=== PATIENT | female | born 1955 | race Caucasian/White ===

== ENCOUNTER 2020-12-24 15:22 | Inpatient (IN) ==
[2020-12-24] MEDS ORDERED: *HR* LORazepam 2 MG/ML VIAL IVP ONE ×3 (16:00→17:40)
[2020-12-24] MEDS ORDERED: 0.9 % Sodium Chloride 1,000 ML IV ONE (16:04)
[2020-12-24] MEDS ORDERED: 0.9 % Sodium Chloride 1,000 ML IVC ONE (16:14)
[2020-12-24] MEDS ORDERED: Naloxone 0.4 MG/ML INJ IVP PRN (17:51)
[2020-12-24] MEDS ORDERED: *HR* LORazepam 2 MG/ML VIAL IVP PRN ×2 (18:05)
[2020-12-24] MEDS: Thiamine (B-1) 100 MG, Folic Acid 1 MG, MVI, adult with vitamin K 10 ML in 0.9 % Sodi... IVPB SCH (18:23)
[2020-12-24] MEDS: 0.9 % Sodium Chloride 1,000 ML IVC SCH (18:26)
[2020-12-24] MEDS ORDERED: cefTRIAXone 1,000 MG in Water for inj. (sterile) 10 ML IVP SCH (19:00)
[2020-12-24 19:51] LABS: Hemoglobin 10.3 g/dL (11.5-15.4)
[2020-12-24] MEDS: Nystatin SUSP 5 ML UD.LIQ PO SCH ×2 (21:32→21:34)
[2020-12-25] MEDS: 0.9 % Sodium Chloride 1,000 ML IVC SCH ×3 (01:49→18:28)
[2020-12-25 05:11] LABS: Basophils % 0.6 %; Hemoglobin 9.1 g/dL (11.5-15.4); Red Cell Distribution Width 13.9 % (11.5-14.5)
[2020-12-25 05:12] LABS: Eosinophils % 0.9 %; Hematocrit 26.5 % (35.3-44.9); Immature Granulocytes % 0.6 % (0-4); Immature Platelets 4.9 % (1.1-6.1); Lymphocytes % 28.6 %; Mean Corpuscular HGB Conc 34.3 g/dL (31.6-35.5); Mean Corpuscular Hemoglobin 32.9 pg (28.0-33.3); Mean Corpuscular Volume 95.7 fL (83.0-100.0); Monocytes # 0.2 K/mcL (0.0-1.3); Monocytes % 5.1 %; Neutrophils # 2.3 K/mcL (1.6-8.9); Red Blood Count 2.77 M/mcL (3.82-4.97); Segmented Neutrophils % 64.2 %; White Blood Count 3.5 K/mcL (4.3-11.1)
[2020-12-25 05:17] LABS: INR 1.1; Prothrombin Time 13.1 Seconds (9.4-12.1)
[2020-12-25 05:19] LABS: Platelet Count 79 K/mcL (140-400)
[2020-12-25 05:31] LABS: Albumin 2.9 g/dL (3.5-5.7); Albumin/Globulin Ratio 2.1 (1.1-2.2); BUN/Creatinine Ratio 22 (6-26); Bilirubin,Direct 1.1 mg/dL (0.0-0.2); Bilirubin,Indirect 0.8 mg/dL (0.0-1.0); Bilirubin,Total 1.9 mg/dL (0.3-1.0); Blood Urea Nitrogen 11 mg/dL (8-23); Calcium 7.9 mg/dL (8.6-10.3); Carbon Dioxide 26 mEq/L (23-29); Chloride 106 mEq/L (98-107); Globulin 1.4 g/dL (2.4-3.5); Glucose 129 mg/dL (70-105); Magnesium 1.5 mg/dL (1.6-2.6); Osmolality,Calculated 287 (280-300); Phosphorous 1.5 mg/dL (2.7-4.5); Sodium 138 mEq/L (136-145); Total Protein 4.3 g/dL (6.4-8.9); eGFR For African Americans > 60 (> 60); eGFR For Non-African Americans > 60 (> 60)
[2020-12-25] MEDS: Pantoprazole 40 MG VIAL IVP SCH ×2 (06:21→16:40)
[2020-12-25] MEDS: Nystatin SUSP 5 ML UD.LIQ PO SCH ×4 (07:23→22:33)
[2020-12-25 13:22] LABS: Thyroid Stimulating Hormone 18.668 mcIU/mL (0.340-5.600)
[2020-12-25 13:28] LABS: Triiodothyronine (T3) Total 0.82 ng/mL (0.87-1.78)
[2020-12-25 14:39] LABS: Adenovirus F 40/41 PCR Not detected (Not detect); Astrovirus PCR Not detected (Not detect); C.difficile Toxin A/B Gene PCR Not detected (Not detect); Campylobacter by PCR Not detected (Not detect); Cryptosporidium by PCR Not detected (Not detect); Cyclospora cayetanensis PCR Not detected (Not detect); E. coli O157 by PCR Not detected (Not detect); Entamoeba histolytica PCR Not detected (Not detect); Enteroaggregative E.coli(EAEC) Not detected (Not detect); Enteropathogenic E.coli(EPEC) Not detected (Not detect); Enterotoxigenic E.coli (ETEC) Not detected (Not detect); Giardia lamblia PCR Not detected (Not detect); Norovirus GI/GII PCR Not detected (Not detect); Plesiomonas shigelloides PCR Not detected (Not detect); Rotavirus A PCR Not detected (Not detect); Salmonella PCR Not detected (Not detect); Sapovirus PCR Not detected (Not detect); Shig/EnteroinvasiveE coli EIEC Not detected (Not detect); Shigalike tox-prod E coli STEC Not detected (Not detect); Vibrio PCR Not detected (Not detect); Vibrio cholerae PCR Not detected (Not detect); Yersinia enterocolitica PCR Not detected (Not detect)
[2020-12-25] MEDS: Thiamine (B-1) 100 MG, Folic Acid 1 MG, MVI, adult with vitamin K 10 ML in 0.9 % Sodi... IVPB SCH (16:40)
[2020-12-25] MEDS: *HR* LORazepam 2 MG/ML VIAL IVP PRN (16:40)
[2020-12-26] MEDS: 0.9 % Sodium Chloride 1,000 ML IVC SCH ×4 (02:47→17:30)
[2020-12-26 03:49] LABS: Basophils % 0.5 %; Eosinophils % 0.7 %; Hematocrit 28.6 % (35.3-44.9); Hemoglobin 9.6 g/dL (11.5-15.4); Immature Platelets 7.2 % (1.1-6.1); Lymphocytes # 1.2 K/mcL (0.6-4.6); Lymphocytes % 28.9 %; Mean Corpuscular HGB Conc 33.6 g/dL (31.6-35.5); Mean Corpuscular Hemoglobin 32.9 pg (28.0-33.3); Mean Corpuscular Volume 97.9 fL (83.0-100.0); Mean Platelet Volume 10.7 fL (9.4-12.4); Monocytes # 0.2 K/mcL (0.0-1.3); Monocytes % 5.9 %; Neutrophils # 2.6 K/mcL (1.6-8.9); Red Blood Count 2.92 M/mcL (3.82-4.97); Red Cell Distribution Width 14.5 % (11.5-14.5); White Blood Count 4.1 K/mcL (4.3-11.1)
[2020-12-26 03:53] LABS: Platelet Count 84 K/mcL (140-400)
[2020-12-26 04:00] LABS: Alanine Aminotransferase 212 Units/L (7-52); Albumin 3.1 g/dL (3.5-5.7); Albumin/Globulin Ratio 2.1 (1.1-2.2); Alkaline Phosphatase 124 Units/L (34-104); Aspartate Amino Transferase 437 Units/L (13-39); BUN/Creatinine Ratio 8 (6-26); Bilirubin,Total 1.1 mg/dL (0.3-1.0); Blood Urea Nitrogen 4 mg/dL (8-23); Calcium 8.2 mg/dL (8.6-10.3); Carbon Dioxide 30 mEq/L (23-29); Chloride 104 mEq/L (98-107); Globulin 1.5 g/dL (2.4-3.5); Glucose 100 mg/dL (70-105); Magnesium 1.8 mg/dL (1.6-2.6); Osmolality,Calculated 287 (280-300); Phosphorous 1.4 mg/dL (2.7-4.5); Potassium 3.3 mEq/L (3.5-5.1); Sodium 140 mEq/L (136-145); Total Protein 4.6 g/dL (6.4-8.9); eGFR For African Americans > 60 (> 60); eGFR For Non-African Americans > 60 (> 60)
[2020-12-26] MEDS: Pantoprazole 40 MG VIAL IVP SCH ×2 (06:35→16:48)
[2020-12-26] MEDS: Nystatin SUSP 5 ML UD.LIQ PO SCH ×4 (08:26→21:53)
[2020-12-26] MEDS: Levothyroxine 25 MCG TABLET PO SCH (09:27)
[2020-12-26] MEDS: *HR* LORazepam 2 MG/ML VIAL IVP PRN ×2 (15:40→22:28)
[2020-12-26] MEDS: Thiamine (B-1) 100 MG, Folic Acid 1 MG, MVI, adult with vitamin K 10 ML in 0.9 % Sodi... IVPB SCH (16:48)
[2020-12-27 04:49] LABS: Basophils % 0.6 %; Eosinophils % 0.8 %; Hematocrit 28.9 % (35.3-44.9); Hemoglobin 9.6 g/dL (11.5-15.4); Immature Granulocytes % 0.6 % (0-4); Immature Platelets 5.7 % (1.1-6.1); Lymphocytes # 1.4 K/mcL (0.6-4.6); Lymphocytes % 29.9 %; Mean Corpuscular HGB Conc 33.2 g/dL (31.6-35.5); Mean Corpuscular Volume 99.3 fL (83.0-100.0); Mean Platelet Volume 10.4 fL (9.4-12.4); Monocytes # 0.4 K/mcL (0.0-1.3); Monocytes % 7.6 %; Neutrophils # 2.8 K/mcL (1.6-8.9); Red Blood Count 2.91 M/mcL (3.82-4.97); Segmented Neutrophils % 60.5 %; White Blood Count 4.7 K/mcL (4.3-11.1)
[2020-12-27 04:50] LABS: Platelet Count 89 K/mcL (140-400)
[2020-12-27 05:07] LABS: Alanine Aminotransferase 242 Units/L (7-52); Albumin 3.1 g/dL (3.5-5.7); Albumin/Globulin Ratio 1.8 (1.1-2.2); Alkaline Phosphatase 109 Units/L (34-104); Aspartate Amino Transferase 455 Units/L (13-39); BUN/Creatinine Ratio 7 (6-26); Bilirubin,Total 0.9 mg/dL (0.3-1.0); Blood Urea Nitrogen 3 mg/dL (8-23); Calcium 8.4 mg/dL (8.6-10.3); Carbon Dioxide 31 mEq/L (23-29); Chloride 103 mEq/L (98-107); Globulin 1.7 g/dL (2.4-3.5); Glucose 107 mg/dL (70-105); Magnesium 1.6 mg/dL (1.6-2.6); Osmolality,Calculated 285 (280-300); Phosphorous 3.3 mg/dL (2.7-4.5); Potassium 3.7 mEq/L (3.5-5.1); Sodium 139 mEq/L (136-145); Total Protein 4.8 g/dL (6.4-8.9); eGFR For African Americans > 60 (> 60); eGFR For Non-African Americans > 60 (> 60)
[2020-12-27 05:32] LABS: Hepatitis B Surface Antigen Nonreactive (Nonreactive)
[2020-12-27 06:01] LABS: Hepatitis B Core IgM Nonreactive (Nonreactive); Hepatitis C Virus Antibody Nonreactive (Nonreactive)
[2020-12-27 06:03] LABS: Hepatitis A Antibody IgM Nonreactive (Nonreactive)
[2020-12-27] MEDS: Pantoprazole 40 MG VIAL IVP SCH ×2 (06:13→16:35)
[2020-12-27] MEDS: Levothyroxine 25 MCG TABLET PO SCH (07:56)
[2020-12-27] MEDS: Nystatin SUSP 5 ML UD.LIQ PO SCH ×4 (07:56→20:41)
[2020-12-27] MEDS: 0.9 % Sodium Chloride 1,000 ML IVC SCH ×2 (07:59→20:40)
[2020-12-27] MEDS: Ondansetron 4 MG/2 ML VIAL IVP PRN (12:40)
[2020-12-27] MEDS: *HR* LORazepam 2 MG/ML VIAL IVP PRN ×2 (16:40→22:32)
[2020-12-28 01:29] LABS: Alanine Aminotransferase 303 Units/L (7-52); Albumin/Globulin Ratio 1.9 (1.1-2.2); Alkaline Phosphatase 119 Units/L (34-104); Aspartate Amino Transferase 588 Units/L (13-39); BUN/Creatinine Ratio 10 (6-26); Bilirubin,Total 0.7 mg/dL (0.3-1.0); Blood Urea Nitrogen 6 mg/dL (8-23); Calcium 8.1 mg/dL (8.6-10.3); Carbon Dioxide 29 mEq/L (23-29); Chloride 104 mEq/L (98-107); Globulin 1.6 g/dL (2.4-3.5); Glucose 124 mg/dL (70-105); Magnesium 1.6 mg/dL (1.6-2.6); Osmolality,Calculated 285 (280-300); Phosphorous 3.9 mg/dL (2.7-4.5); Potassium 3.9 mEq/L (3.5-5.1); Sodium 138 mEq/L (136-145); Total Protein 4.6 g/dL (6.4-8.9); eGFR For African Americans > 60 (> 60); eGFR For Non-African Americans > 60 (> 60)
[2020-12-28] MEDS: Pantoprazole 40 MG VIAL IVP SCH ×2 (05:33→16:35)
[2020-12-28] MEDS: Nystatin SUSP 5 ML UD.LIQ PO SCH ×4 (07:49→20:19)
[2020-12-28] MEDS: Levothyroxine 25 MCG TABLET PO SCH (07:49)
[2020-12-28] MEDS: 0.9 % Sodium Chloride 1,000 ML IVC SCH (07:55)
[2020-12-28] MEDS: *HR* LORazepam 2 MG/ML VIAL IVP PRN (20:26)
[2020-12-29 03:48] LABS: Alanine Aminotransferase 327 Units/L (7-52); Albumin 3.3 g/dL (3.5-5.7); Albumin/Globulin Ratio 1.8 (1.1-2.2); Alkaline Phosphatase 124 Units/L (34-104); Aspartate Amino Transferase 488 Units/L (13-39); BUN/Creatinine Ratio 13 (6-26); Bilirubin,Total 0.7 mg/dL (0.3-1.0); Blood Urea Nitrogen 7 mg/dL (8-23); Calcium 8.7 mg/dL (8.6-10.3); Carbon Dioxide 31 mEq/L (23-29); Chloride 102 mEq/L (98-107); Globulin 1.8 g/dL (2.4-3.5); Glucose 107 mg/dL (70-105); Osmolality,Calculated 284 (280-300); Potassium 3.8 mEq/L (3.5-5.1); Sodium 138 mEq/L (136-145); Total Protein 5.1 g/dL (6.4-8.9); eGFR For African Americans > 60 (> 60); eGFR For Non-African Americans > 60 (> 60)
[2020-12-29] MEDS: Pantoprazole 40 MG VIAL IVP SCH ×2 (04:59→16:51)
[2020-12-29] MEDS: Nystatin SUSP 5 ML UD.LIQ PO SCH ×4 (07:29→19:51)
[2020-12-29] MEDS: Levothyroxine 25 MCG TABLET PO SCH (07:29)
[2020-12-29] MEDS: ALPRAZolam 0.25 MG TABLET PO PRN (08:13)
[2020-12-29] MEDS: Nicotine 21 MG PATCH.TD24 TD SCH (08:13)
[2020-12-29] MEDS ORDERED: Ipratropium/Albuterol Neb 3 ML IH PRN (14:46)
[2020-12-29] MEDS: *HR* LORazepam 2 MG/ML VIAL IVP PRN ×2 (16:59→23:32)
[2020-12-30] MEDS: Pantoprazole 40 MG VIAL IVP SCH ×2 (05:34→16:55)
[2020-12-30 06:29] LABS: Alanine Aminotransferase 307 Units/L (7-52); Albumin 3.4 g/dL (3.5-5.7); Albumin/Globulin Ratio 1.6 (1.1-2.2); Alkaline Phosphatase 124 Units/L (34-104); Aspartate Amino Transferase 357 Units/L (13-39); BUN/Creatinine Ratio 17 (6-26); Bilirubin,Total 0.6 mg/dL (0.3-1.0); Blood Urea Nitrogen 10 mg/dL (8-23); Calcium 8.8 mg/dL (8.6-10.3); Carbon Dioxide 30 mEq/L (23-29); Chloride 103 mEq/L (98-107); Globulin 2.1 g/dL (2.4-3.5); Glucose 104 mg/dL (70-105); Osmolality,Calculated 283 (280-300); Potassium 4.4 mEq/L (3.5-5.1); Sodium 137 mEq/L (136-145); Total Protein 5.5 g/dL (6.4-8.9); eGFR For African Americans > 60 (> 60); eGFR For Non-African Americans > 60 (> 60)
[2020-12-30] MEDS: ALPRAZolam 0.25 MG TABLET PO PRN ×2 (09:22→21:12)
[2020-12-30] MEDS: Nystatin SUSP 5 ML UD.LIQ PO SCH ×4 (09:22→19:43)
[2020-12-30] MEDS: Levothyroxine 25 MCG TABLET PO SCH (09:22)
[2020-12-30] MEDS: Nicotine 21 MG PATCH.TD24 TD SCH (09:22)
[2020-12-30 10:07] LABS: ANA IgG by ELISA NONE DETECTED (None Detected); F-Actin (sm muscle) Ab IgG 5 Units (0-19)
[2020-12-30] MEDS: *HR* LORazepam 2 MG/ML VIAL IVP PRN ×2 (14:13→19:43)
[2020-12-31] MEDS: *HR* LORazepam 2 MG/ML VIAL IVP PRN ×2 (00:22→20:50)
[2020-12-31] MEDS: Pantoprazole 40 MG VIAL IVP SCH (05:32)
[2020-12-31] MEDS: Levothyroxine 25 MCG TABLET PO SCH (08:16)
[2020-12-31] MEDS: Nystatin SUSP 5 ML UD.LIQ PO SCH ×4 (08:16→20:36)
[2020-12-31] MEDS: Nicotine 21 MG PATCH.TD24 TD SCH (08:16)
[2020-12-31 09:44] LABS: Alanine Aminotransferase 278 Units/L (7-52); Albumin 3.4 g/dL (3.5-5.7); Albumin/Globulin Ratio 1.6 (1.1-2.2); Alkaline Phosphatase 125 Units/L (34-104); Aspartate Amino Transferase 282 Units/L (13-39); BUN/Creatinine Ratio 18 (6-26); Bilirubin,Total 0.6 mg/dL (0.3-1.0); Blood Urea Nitrogen 11 mg/dL (8-23); Calcium 8.8 mg/dL (8.6-10.3); Carbon Dioxide 27 mEq/L (23-29); Chloride 105 mEq/L (98-107); Globulin 2.1 g/dL (2.4-3.5); Glucose 92 mg/dL (70-105); Osmolality,Calculated 285 (280-300); Sodium 138 mEq/L (136-145); Total Protein 5.5 g/dL (6.4-8.9); eGFR For African Americans > 60 (> 60); eGFR For Non-African Americans > 60 (> 60)
[2020-12-31 10:55] LABS: Smooth Muscle Ab Titer IgG <1:20 (<1:20)
[2020-12-31] MEDS: ALPRAZolam 0.25 MG TABLET PO PRN (13:15)
[2021-01-01 02:10] LABS: Alanine Aminotransferase 238 Units/L (7-52); Albumin 3.3 g/dL (3.5-5.7); Albumin/Globulin Ratio 1.6 (1.1-2.2); Alkaline Phosphatase 133 Units/L (34-104); Aspartate Amino Transferase 208 Units/L (13-39); BUN/Creatinine Ratio 24 (6-26); Bilirubin,Total 0.4 mg/dL (0.3-1.0); Blood Urea Nitrogen 12 mg/dL (8-23); Calcium 8.8 mg/dL (8.6-10.3); Carbon Dioxide 26 mEq/L (23-29); Chloride 104 mEq/L (98-107); Globulin 2.1 g/dL (2.4-3.5); Glucose 105 mg/dL (70-105); Osmolality,Calculated 284 (280-300); Potassium 3.9 mEq/L (3.5-5.1); Sodium 137 mEq/L (136-145); Total Protein 5.4 g/dL (6.4-8.9); eGFR For African Americans > 60 (> 60); eGFR For Non-African Americans > 60 (> 60)
[2021-01-01] MEDS: Nicotine 21 MG PATCH.TD24 TD SCH (07:25)
[2021-01-01] MEDS: Nystatin SUSP 5 ML UD.LIQ PO SCH ×4 (07:25→19:59)
[2021-01-01] MEDS: Levothyroxine 25 MCG TABLET PO SCH (07:25)
[2021-01-01] MEDS: ALPRAZolam 0.25 MG TABLET PO PRN (16:15)
[2021-01-01] MEDS ORDERED: Acetaminophen 325 MG TABLET PO ONE (17:54)
[2021-01-01] MEDS: Ondansetron 4 MG/2 ML VIAL IVP PRN (18:34)
[2021-01-01] MEDS: *HR* LORazepam 2 MG/ML VIAL IVP PRN (22:36)
[2021-01-02 07:14] LABS: Alanine Aminotransferase 231 Units/L (7-52); Albumin 3.5 g/dL (3.5-5.7); Albumin/Globulin Ratio 1.6 (1.1-2.2); Alkaline Phosphatase 121 Units/L (34-104); Aspartate Amino Transferase 177 Units/L (13-39); BUN/Creatinine Ratio 11 (6-26); Bilirubin,Total 0.4 mg/dL (0.3-1.0); Blood Urea Nitrogen 8 mg/dL (8-23); Calcium 9.2 mg/dL (8.6-10.3); Carbon Dioxide 30 mEq/L (23-29); Chloride 103 mEq/L (98-107); Globulin 2.2 g/dL (2.4-3.5); Glucose 92 mg/dL (70-105); Osmolality,Calculated 284 (280-300); Potassium 4.1 mEq/L (3.5-5.1); Sodium 138 mEq/L (136-145); Total Protein 5.7 g/dL (6.4-8.9); eGFR For African Americans > 60 (> 60); eGFR For Non-African Americans > 60 (> 60)
[2021-01-02 07:47] VITALS: O2SAT 96
[2021-01-02] MEDS: Nystatin SUSP 5 ML UD.LIQ PO SCH ×3 (08:34→16:15)
[2021-01-02] MEDS: Levothyroxine 25 MCG TABLET PO SCH (08:34)
[2021-01-02] MEDS: Nicotine 21 MG PATCH.TD24 TD SCH (08:35)
[2021-01-02] MEDS: ALPRAZolam 0.25 MG TABLET PO PRN (13:27)
[2021-01-02 16:29] VITALS: BP 90/60; PULSE 68; TEMP 98.4
== END 2021-01-02 20:25 | DRG 775 ==
LOC: EMEROOARM 15:22 → 3BNU 15:22 → SUATTDRO 17:06 → 3BNU 17:55 → SUATTDRO 12-26 17:34
PROVIDERS: ADMIT Pharmacist; ATTEND Family Medicine

== ENCOUNTER 2021-01-02 20:10 | Observation (INO) ==
[2021-01-02] MEDS ORDERED: haloperidoL 5 MG TABLET PO PRN (20:25)
[2021-01-02] MEDS ORDERED: MOM Conc 10 ML UD.LIQ PO PRN (20:25)
[2021-01-02] MEDS ORDERED: *HR* LORazepam 1 MG TABLET PO PRN (20:25)
[2021-01-02] MEDS ORDERED: Ibuprofen 400 MG TABLET PO PRN (20:25)
[2021-01-02] MEDS ORDERED: Haloperidol Lactate 5 MG/ML VIAL IM PRN (20:25)
[2021-01-02] MEDS ORDERED: traZODone 50 MG TABLET PO PRN (20:25)
[2021-01-02] MEDS ORDERED: Mag Hydrox/Al Hydrox/Simeth 30 ML UDC PO PRN (20:25)
[2021-01-02] MEDS ORDERED: *HR* LORazepam 2 MG/ML VIAL IM PRN (20:25)
[2021-01-02] MEDS ORDERED: Acetaminophen 325 MG TABLET PO PRN (20:25)
[2021-01-02] MEDS: hydrOXYzine pamoate 25 MG CAPSULE PO PRN (21:50)
[2021-01-02] MEDS: Nystatin SUSP 5 ML UD.LIQ PO SCH (22:07)
[2021-01-03] MEDS: Levothyroxine 25 MCG TABLET PO SCH (06:37)
[2021-01-03] MEDS: Nicotine 21 MG PATCH.TD24 TD SCH (09:03)
[2021-01-03] MEDS: Nystatin SUSP 5 ML UD.LIQ PO SCH ×4 (09:04→20:35)
[2021-01-03] MEDS: hydrOXYzine pamoate 25 MG CAPSULE PO PRN ×2 (10:44→14:34)
[2021-01-03] MEDS: Thiamine (B-1) 100 MG TABLET PO SCH (12:09)
[2021-01-03] MEDS: Folic Acid 1 MG TABLET PO SCH (12:09)
[2021-01-03] MEDS: QUEtiapine Fumarate 25 MG TABLET PO PRN (20:35)
[2021-01-04] MEDS: hydrOXYzine pamoate 25 MG CAPSULE PO PRN ×2 (04:14→15:48)
[2021-01-04] MEDS: Nystatin SUSP 5 ML UD.LIQ PO SCH ×4 (08:10→21:31)
[2021-01-04] MEDS: Nicotine 21 MG PATCH.TD24 TD SCH (08:11)
[2021-01-04] MEDS: Thiamine (B-1) 100 MG TABLET PO SCH (08:12)
[2021-01-04] MEDS: Folic Acid 1 MG TABLET PO SCH (08:12)
[2021-01-04] MEDS: Levothyroxine 25 MCG TABLET PO SCH (08:13)
[2021-01-04] MEDS: QUEtiapine Fumarate 25 MG TABLET PO PRN (21:31)
[2021-01-05] MEDS: Levothyroxine 25 MCG TABLET PO SCH (06:07)
[2021-01-05] MEDS: Nicotine 21 MG PATCH.TD24 TD SCH (08:16)
[2021-01-05] MEDS: Thiamine (B-1) 100 MG TABLET PO SCH (08:17)
[2021-01-05] MEDS: Nystatin SUSP 5 ML UD.LIQ PO SCH ×4 (08:17→21:01)
[2021-01-05] MEDS: Folic Acid 1 MG TABLET PO SCH (08:18)
[2021-01-05] MEDS: QUEtiapine Fumarate 25 MG TABLET PO PRN (21:01)
[2021-01-05] MEDS: hydrOXYzine pamoate 25 MG CAPSULE PO PRN (21:01)
[2021-01-06] MEDS: Levothyroxine 25 MCG TABLET PO SCH (05:34)
[2021-01-06] MEDS: Folic Acid 1 MG TABLET PO SCH (08:43)
[2021-01-06] MEDS: Nicotine 21 MG PATCH.TD24 TD SCH (08:44)
[2021-01-06] MEDS: Nystatin SUSP 5 ML UD.LIQ PO SCH ×2 (08:44→13:24)
[2021-01-06 09:05] VITALS: BP 134/92; PULSE 74; TEMP 97.8; O2SAT 99
[2021-01-06] MEDS: Thiamine (B-1) 100 MG TABLET PO SCH (09:06)
[2021-01-06 11:13] LABS: Basophils # 0.2 K/mcL (0.0-0.2); Basophils % 1.8 %; Eosinophils % 0.2 %; Hematocrit 34.5 % (35.3-44.9); Hemoglobin 11.2 g/dL (11.5-15.4); Immature Granulocytes % 0.7 % (0-4); Lymphocytes # 2.1 K/mcL (0.6-4.6); Lymphocytes % 25.2 %; Mean Corpuscular HGB Conc 32.5 g/dL (31.6-35.5); Mean Corpuscular Hemoglobin 32.8 pg (28.0-33.3); Mean Corpuscular Volume 101.2 fL (83.0-100.0); Mean Platelet Volume 9.2 fL (9.4-12.4); Monocytes # 0.7 K/mcL (0.0-1.3); Monocytes % 8.4 %; Neutrophils # 5.3 K/mcL (1.6-8.9); Platelet Count 438 K/mcL (140-400); Red Blood Count 3.41 M/mcL (3.82-4.97); Red Cell Distribution Width 14.9 % (11.5-14.5); Segmented Neutrophils % 63.7 %; White Blood Count 8.3 K/mcL (4.3-11.1)
[2021-01-06 11:29] LABS: Alanine Aminotransferase 128 Units/L (7-52); Albumin 4.1 g/dL (3.5-5.7); Albumin/Globulin Ratio 1.8 (1.1-2.2); Alkaline Phosphatase 111 Units/L (34-104); Aspartate Amino Transferase 70 Units/L (13-39); BUN/Creatinine Ratio 18 (6-26); Bilirubin,Direct 0.1 mg/dL (0.0-0.2); Bilirubin,Indirect 0.3 mg/dL (0.0-1.0); Bilirubin,Total 0.4 mg/dL (0.3-1.0); Blood Urea Nitrogen 13 mg/dL (8-23); Calcium 9.1 mg/dL (8.6-10.3); Carbon Dioxide 26 mEq/L (23-29); Chloride 102 mEq/L (98-107); Chol/HDL Ratio 2.7 (0-4.9); Cholesterol 182 mg/dL (< 200); Globulin 2.3 g/dL (2.4-3.5); Glucose 103 mg/dL (70-105); HDL Cholesterol 67 mg/dL (40-59); LDL Cholesterol,Calculated 98 mg/dL (< 100); Osmolality,Calculated 284 (280-300); Potassium 3.8 mEq/L (3.5-5.1); Sodium 137 mEq/L (136-145); Total Protein 6.4 g/dL (6.4-8.9); Triglycerides 84 mg/dL (< 150); eGFR For African Americans > 60 (> 60); eGFR For Non-African Americans > 60 (> 60)
[2021-01-06 11:30] LABS: Estimated Average Glucose 94 mg/dl; Hemoglobin A1C 4.9 %
[2021-01-06 11:42] LABS: Thyroid Stimulating Hormone 6.136 mcIU/mL (0.340-5.600)
== END 2021-01-06 15:05 | disposition home or self-care (01) ==
LOC: INTOOBSV 20:10 → 1ANU 20:10
PROVIDERS: ADMIT Psychiatry & Neurology Psychiatry; ATTEND Psychiatry & Neurology Psychiatry